=== PATIENT | female | born 1965 ===

== ENCOUNTER 2024-12-11 07:39 | Outpatient (CLI) | payer OTHER | END 2024-12-11 07:41 | disposition home or self-care (01) | LOC: RAD 07:39 | PROVIDERS: ATTEND Specialist | DX: Z12.39 Encounter for other screening for malignant neoplasm of breast (principal); Z12.31 Encounter for screening mammogram for malignant neoplasm of breast; T85.43XA Leakage of breast prosthesis and implant, initial encounter; X58.XXXA Exposure to other specified factors, initial encounter; Y93.9 Activity, unspecified; Y92.9 Unspecified place or not applicable; Y99.9 Unspecified external cause status ==

== ENCOUNTER 2025-06-11 16:01 | Outpatient (CLI) | payer OTHER | END 2025-06-11 16:03 | disposition home or self-care (01) | LOC: RAD 16:01 | DX: Z01.810 Encounter for preprocedural cardiovascular examination (principal) ==